=== PATIENT | female | born 1960 ===

== ENCOUNTER 2018-01-05 07:47 | Inpatient (IN) | payer BC ==
[2018-01-05 07:47] VITALS: BMI 25.8
[2018-01-05] MEDS ORDERED: Morphine 4 MG/ML VIAL ONE (08:34)
--- NOTE | 2018-01-05 08:39 | C.PDOC ---
History Of Present Illness 57-year-old female, presents to the emergency department with complaints of shoulder pain. Patient states she injured her right shoulder this morning, s/p trip and fall while walking. Pain worsens with movement. Patient denies numbness /weakness, nausea/vomiting, head/neck injuries. Time Seen by Provider: 01/05/18 08:02 Chief Complaint (Nursing): Upper Extremity Problem/Injury History Per: Patient History/Exam Limitations: no limitations Past Medical History Reviewed: Historical Data, Nursing Documentation, Vital Signs Vital Signs: Last Vital Signs Temp 98.1 F 01/05/18 07:58 Pulse 89 01/05/18 09:44 Resp 20 01/05/18 09:44 BP 150/89 01/05/18 09:44 Pulse Ox 99 01/05/18 09:44 - Medical History PMH: Anemia (G6PD), HTN Family History: States: No Known Family Hx - Social History Hx Tobacco Use: Yes Hx Alcohol Use: No Hx Substance Use: No - Immunization History Hx Tetanus Toxoid Vaccination: No Hx Influenza Vaccination: No Hx Pneumococcal Vaccination: No Review Of Systems Gastrointestinal: Negative for: Vomiting Musculoskeletal: Positive for: Shoulder Pain (Right) Neurological: Negative for: Weakness, Numbness Physical Exam - Physical Exam Appears: Non-toxic, No Acute Distress Skin: Normal Color, Warm, Dry, No Rash Head: Atraumatic, Normacephalic Eye(s): bilateral: Normal Inspection Oral Mucosa: Moist Neck: Normal ROM Chest: Symmetrical Cardiovascular: Rhythm Regular, No Murmur Respiratory: Normal Breath Sounds, No Accessory Muscle Use Extremity: Tenderness, Deformity, Swelling, Other (Right shoulder: severe pain, obvious deformity with moderate swelling. Echymosis to anterior aspect with diffuse tenderness. Unable to abduct.) Pulses: Left Brachial: Normal, Right Brachial: Normal Neurological/Psych: Oriented x3, Normal Speech ED Course And Treatment - Laboratory Results Result Diagrams: 01/05/18 08:40 01/05/18 08:40 Lab Interpretation: No Acute Changes ECG: Interpreted By Me, Viewed By Me ECG Rhythm: Sinus Rhythm ECG Interpretation: No Acute Changes Interpretation Of ECG: NS at [address]-T wave abnormality and no acute changes Rate From EC O2 Sat by Pulse Oximetry: 99 (RA) Pulse Ox Interpretation: Normal - Radiology CXR: Interpreted by Me, Viewed By Me CXR Interpretation: Yes: No Acute Disease - Other Rad XR R SHOULDER X-Ray: Interpreted by Me, Viewed By Me, Read By Radiologist Interpretation: Humeral head comminuted impacted displaced fracture Medical Decision Making Medical Decision Making: Impression: Right shoulder injury Plan: * Labs * Morphine * XRay right shoulder * UA Progress: Xray shows acute displaced comminuted impacted angulated fracture of the distal humerus with associated fracture of the greater tuberosity. [address] Norris, requesting CT shoulder. He states keep NPO and will come to ED ETA 10am, and prep for OR. Additional orders placed CXR, EKG Diagnostics reviewed Contact medicine sponge packer Dr Daniels to admit patient to medical service. Patient remained stable and pain improving. Disposition - Disposition Disposition: HOSPITALIZED Disposition Time: 09:40 Condition: STABLE - POA Present On Arrival: None - Clinical Impression Clinical Impression: Shoulder fracture, right - Scribe Statement The provider has reviewed the documentation as recorded by the Scribe (Edouard Norris) All medical record entries made by the Scribe were at my direction and personally dictated by me. I have reviewed the chart and agree that the record accurately reflects my personal performance of the history, physical exam, medical decision making, and the department course for this patient. I have also personally directed, reviewed, and agree with the discharge instructions and disposition. Decision To Admit - Pt Status Changed To: Hospital Disposition Of: Inpatient - Admit Certification Admit to Inpatient:: After my assessment, the patient will require hospitalization for at least two midnights. This is because of the severity of symptoms shown, intensity of services needed, and/or the medical risk in this patient being treated as an outpatient. - InPatient: Physician Admission Certification: I certify that this patient requires 2 or more midnights of care for the following reason:: Patient with acute fracture to right shoulder that requires surgical repair. Orthopedic requested pre-op labs and will take patient to OR. - . Bed Request Type: Regular Admitting Physician: Juan Carlos Daniels Patient Diagnosis: Shoulder fracture, right
--- NOTE | 2018-01-05 08:50 | RAD ---
PROCEDURE: Radiographs of the Right Shoulder HISTORY: fall and injury, swelling and pain COMPARISON: None available. FINDINGS: Comminuted displaced fracture of the proximal humerus. The humeral head appears dislocated anterior inferiorly. Coarse calcifications in the joint space consistent with calcific tendinitis. Distal clavicle, included right ribs, acromion, and right scapula appear intact. Degenerative changes the visualized thoracic spine. No focal consolidation, significant pleural effusion, or definite pneumothorax within the limited visualized lung field. IMPRESSION: Comminuted displaced fracture of the proximal humerus. Anterior inferior dislocation of the humeral head. Evidence of calcific tendinitis.
[2018-01-05 08:54] LABS: INR 1.1; PROTHROMBIN TIME 12.3 SECONDS (9.7-12.2)
[2018-01-05 08:56] LABS: BASO % 0.2 % (0.0-2.0); EOS % 0.1 % (0.0-4.0); HEMOGLOBIN 11.5 g/dL (11.0-16.0); LYMPH # 1.4 K/uL (1.0-4.3); LYMPH % 16.7 % (20.0-40.0); MEAN CORPUSCULAR HEMOGLOBIN 36.7 pg (27.0-31.0); MEAN PLATELET VOLUME 7.3 fL (7.2-11.7); MONO # 0.5 K/uL (0.0-0.8); MONO % 6.4 % (0.0-10.0); NEUT # 6.5 K/uL (1.8-7.0); NEUT % 76.6 % (50.0-75.0); RBC 3.13 Mil/uL (3.80-5.20); RED CELL DISTRIBUTION WIDTH 12.4 % (11.5-14.5); WHITE BLOOD COUNT 8.5 K/uL (4.8-10.8)
[2018-01-05 09:03] LABS: ALB/GLOB RATIO 1.4 (1.0-2.1); ALBUMIN 4.5 g/dL (3.5-5.0); ALT/SGPT 34 U/L (9-52); AST/SGOT 59 U/L (14-36); BLOOD UREA NITROGEN 12 mg/dL (7-17); CALCIUM 8.9 mg/dl (8.6-10.4); GFR AFRICAN-AMERICAN > 60; GFR NON-AFRICAN AMERICAN > 60
--- NOTE | 2018-01-05 09:33 | RAD ---
HISTORY: pre-op COMPARISON: Chest radiograph dated 05/11/2011. FINDINGS: LUNGS: No active pulmonary disease. PLEURA: No significant pleural effusion identified, no pneumothorax apparent. CARDIOVASCULAR: Normal. OSSEOUS STRUCTURES: Comminuted fracture of the proximal right humerus. VISUALIZED UPPER ABDOMEN: Normal. OTHER FINDINGS: None. IMPRESSION: No active disease.
--- NOTE | 2018-01-05 09:35 | CT ---
PROCEDURE: CT right shoulder HISTORY: abnormal xray and fracture COMPARISON: Not available TECHNIQUE: 2.5 mm contiguous axial sections were acquired through the right shoulder. Sagittal and coronal images were reformatted from the axial scan. FINDINGS: There is an impacted comminuted displaced fracture of the right humeral head and greater tuberosity. There is mild posterior displacement of the main each humeral head fragment head with posterior angulation and impaction. This is best appreciated on sagittal series. There are globular calcifications adjacent to greater tuberosity consistent with calcific tendinitis. There is no glenoid fracture appreciated. There are small subchondral cysts of the glenoid consistent with degenerative arthritis. There is an old healed fracture of the distal clavicle. There is a large inferior spur arising from the distal clavicle resulting in a pseudoarticulation with the coracoid process. There is no acute scapular fracture. The acromioclavicular articulation is preserved. There is no suman hematoma. IMPRESSION: Acute displaced comminuted impacted angulated fracture of the distal humerus with associated fracture of the greater tuberosity. Old healed fracture of the distal clavicle. Calcific tendinitis.
[2018-01-05] MEDS ORDERED: Oxycodone/Acetaminophen 5/325 mg Tab PO PRN (10:18)
[2018-01-05] MEDS ORDERED: oxyCODONE 5 mg Immediate Release Tab PO PRN ×2 (10:31→10:45)
--- NOTE | 2018-01-05 10:33 | CP.PCM.PN ---
Subjective - Date & Time of Evaluation Date of Evaluation: 01/05/18 Time of Evaluation: 10:32 - Subjective Subjective: CC: fall with pain in R shoulder This patient is a 57yo F w/ a PMhx of symptomatic anemia 2/2 to fibroids, G6PD deficiency, endometriosis s/p partial hysterectomy, and HTN not currently on meds because she hasn't been to the doctor in a while who presents to the ED because she was walking, lost her footing, tripped, and fell on her right shoulder. The patient is unable to move her right arm in any plane 2/2 to pain; she is not complaining of numbness/tingling/pain in her hand/forearm, just in her shoulder and the pain does not radiate anywhere. She is currently denying fevers/chills, JEAN, CP, SOB, abdominal pain, N/V/D, dysuria/freq/urg or lower extremity pain/swelling. PMhx: Fibroids, Endometriosis, HTN, G6PD deficiency Surg: partial hysterectomy with both ovaries still, no adverse event to anesthesia FamHx: HTN, DM, breast cancer in 60's in sisters Allergies: G6PD; avoid hepatotoxic medications, no other allergies Social: walks without assistance, independent in all IADL and ADL, smokes 1ppd/ 30 years, social EtOH, denies all other illicit drugs Meds: None, but should be taking lisinopril 5mg Objective - Vital Signs/Intake and Output Vital Signs (last 24 hours): Temp Pulse Resp BP Pulse Ox 98.1 F 89 20 150/89 99 01/05/18 07:58 01/05/18 09:44 01/05/18 09:44 01/05/18 09:44 01/05/18 10:31 - Medications Medications: Current Medications Famotidine (Pepcid) 20 mg PO BID ANITA Ketorolac Tromethamine (Toradol) 30 mg IV Q6 PRN PRN Reason: Pain, moderate (4-7) Lisinopril (Zestril) 5 mg PO DAILY ANITA Ondansetron HCl (Zofran Inj) 4 mg IVP Q6 PRN PRN Reason: Nausea/Vomiting - Labs Labs: 01/05/18 08:40 01/05/18 08:40 PT 12.3 SECONDS (9.7-12.2) H 01/05/18 08:40 INR 1.1 01/05/18 08:40 APTT 25 SECONDS (21-34) 01/05/18 08:40 - Constitutional Appears: Non-toxic - Head Exam Head Exam: ATRAUMATIC, NORMAL INSPECTION - Eye Exam Eye Exam: EOMI - ENT Exam ENT Exam: Mucous Membranes Moist - Neck Exam Neck Exam: Normal Inspection. absent: Full ROM (pain with neck flexion and extension in the r shoulder), Lymphadenopathy, Meningismus - Respiratory Exam Respiratory Exam: Clear to Ausculation Bilateral, NORMAL BREATHING PATTERN. absent: Rales, Rhonchi, Wheezes - Cardiovascular Exam Cardiovascular Exam: REGULAR RHYTHM, +S1, +S2. absent: Tachycardia - GI/Abdominal Exam GI & Abdominal Exam: Soft, Normal Bowel Sounds. absent: Tenderness - Extremities Exam Extremities Exam: absent: Calf Tenderness, Full ROM (there is marked ROM limitation in right upper extrem, neurovascularly intact, intact senstation below shoulder to fingers, able to move forearm without problem or pain, and all fingers) - Back Exam Back Exam: NORMAL INSPECTION. absent: CVA tenderness (L), CVA tenderness (R) - Neurological Exam Neurological Exam: Alert, Awake - Skin Skin Exam: Warm (bruise on right leg/hip, able ot move hips in all ROM) Assessment and Plan - Assessment and Plan (Free Text) Assessment: 57yo F admitted for distal humerus fracture with concomittant fracture of greater tuberosity Distal Humerus fracture w/ fx of greater tuberosity -Dr. Norris; orthopedics; thank you for your help -NPO in ED and will be NPO aftermidnight as well; will hold anticoagulation currently for surgery -please refer to CAT scan for full report -patient is neurovascularly intact -pain control; morphine IV, Oxycodone, Tordal; avoid tylenol 2/2 to G6PD deficiency Pmhx of HTN -lisinopril 5mg daily Hx of G6PD Deficiency -avoid hepatotoxic medications Proph Pepcid SCD f/u HbA1C, TSH, Lipid Panel Patient has G6PD deficiency; please avoid all hepatotoxic medications Case discussed with Dr. Daniels
[2018-01-05] MEDS: Morphine 4 MG/ML VIAL IVP PRN ×2 (12:40→21:19)
[2018-01-05] MEDS ORDERED: Midazolam 2 MG/2 ML VIAL ONE (14:14)
[2018-01-05] MEDS ORDERED: Propofol 10 mg/ml Inj (20 ML) ONE (14:15)
[2018-01-05] MEDS ORDERED: ceFAZolin 1 gm in NS 1 GM/100 ML BAG IVPB ONE (14:32)
[2018-01-05] MEDS ORDERED: Lidocaine/Epinephrine 1% 1:100000 10 ML IJ ONE (15:14)
[2018-01-05] MEDS ORDERED: Bupivacaine HCl 0.25% PF (10 ml) Inj ONE (17:13)
--- NOTE | 2018-01-05 17:33 | PCM.SURG1 ---
Surgeon's Initial Post Op Note - Surgeon's Notes Surgeon: Dr. Norris Hockey Instructor: Cliff Carreon Type of Anesthesia: General Endo Pre-Operative Diagnosis: Right shoulder fracture displaced, closed Operative Findings: Fixation plates and screw SYNTHES Post-Operative Diagnosis: same Operation Performed: Right shoulder open reduction and internal fixation Specimen/Specimens Removed: None Estimated Blood Loss: EBL {In ML}: 100 Blood Products Given: N/A Drains Used: No Drains Post-Op Condition: Good Date of Surgery/Procedure: 01/05/18 Time of Surgery/Procedure: 17:33
[2018-01-05] MEDS: HYDROmorphone 0.5 mg/0.5 ml ISec IVP PRN ×2 (17:47→19:17)
[2018-01-06] MEDS: Morphine 4 MG/ML VIAL IVP PRN (01:36)
--- NOTE | 2018-01-06 03:11 | CON ---
DATE: CHIEF COMPLAINT: Right shoulder proximal humerus fracture. HISTORY OF PRESENT ILLNESS: The patient is a 57-year-old female, right-hand dominant, who presented to the ER after slip and fall. The x-ray and CT scan showing a displaced 4-part proximal humerus fracture. The patient was seen by me in the emergency room. I had a detailed discussion with patient. I explained the complex nature. She denied any loss of consciousness. She denies pain in any of the extremities or joints. Denies any significant previous right shoulder pain. PHYSICAL EXAMINATION: Examination of the patient's right shoulder, there was significant ecchymosis, soft tissue, and swelling, limited range of motion of the shoulder. She was neurovascularly intact distally. Under imaging, x-ray and CT scan of the patient's right shoulder, showing a 4-part comminuted proximal humerus fracture. ASSESSMENT: A 57-year-old female, right shoulder 4-part comminuted proximal humerus fracture treatment. I had a detailed discussion with the patient, regarding the complex nature of the injury. I presented the patient with different treatment options, for nonoperative and operative management. After careful consideration, the patient would like to proceed with operative management. I had recommended open reduction internal fixation. The risk include, but are not limited to bleeding, infection, nerve vessel damage, continued pain, malunion, nonunion, blood clots, need for further surgery, and even . The patient fully understands the risks and benefits, would like to proceed with surgery as soon as possible. Chris Norris MD
--- NOTE | 2018-01-06 03:45 | OP ---
PROCEDURE DATE: 01/05/2018 PREOPERATIVE DIAGNOSIS: Right shoulder proximal humerus fracture. POSTOPERATIVE DIAGNOSIS: Right shoulder anterior dislocation. PROCEDURES: 1. Right shoulder open reduction internal fixation of proximal humerus fracture. 2. Right shoulder open/closed reduction. 3. Biceps tenodesis, right shoulder open. 4. Debridement of soft tissue and bone of right shoulder. 5. Fluoroscopic use more than 1 hour. 6. Bone grafting of the front humerus defect. ESTIMATED BLOOD LOSS: 150 mL. ANESTHESIA TYPE: General. SURGEON: Chris Norris MD FILLING TECHNICIAN: Luiz Coronado MD IMPLANTS: 1. Synthes 3-hole proximal humerus plate. 2. Cancellous chip bone graft. 3. Norian cement. ORIF of the right shoulder. The patient was seen by me in the emergency room, showed a displaced fracture across the humerus. I presented the patient with different treatment options of open reduction internal fixation versus nonoperative management. I reviewed the risks and benefits of both treatment options with the patient and after careful consideration, she opted to proceed with the operative management. I reviewed the risks and benefits of the surgery with the patient in detail. The risks included but not limited to bleeding, infection, neurovascular damage, continued pain, stiffness, need for further surgery, blood clot, even . The patient fully understood the risks and benefits and opted to proceed. DESCRIPTION OF PROCEDURE: On the day of the surgery, the patient was brought to preop holding area. A laterality of hip was completed confirming the patient's right shoulder to be the correct operative site. Informed consent was signed from the patient. Once again, we reviewed the risks and benefits. The patient was brought into operating room table. She was given general anesthesia and appropriate prophylactic antibiotics, after which he was placed in a beach chair position with head of bed, to 60 degrees of flexion. The right shoulder was draped and prepped in standard sterile manner. First a time-out was completed confirming the patient's right shoulder. First fluoroscopic images were taken showing anterior dislocation of the shoulder that was irreducible. Next, we proceeded with a standard 8 cm deltopectoral incision. Skin dissection was taken down. The cephalic vein was identified and mobilized laterally. The interval between the deltoid and pectoralis major was identified. The fracture was identified. There was extensive hematoma, which was evacuated. There was a brief soft tissue damage that was extensively debrided using irrigation and lavage. All pieces of bone were removed and the biceps was identified and a biceps tenotomy was performed and it was tied to the top superior portion of pectoralis major tendon, using number two 5-0 wire. After extensive debridement, the fracture fragments were mobilized and the sutures were placed in the rotator cuff tendons to gain mobility of the proximal fragments. Using the Patterson elevator, the arm was brought out to length and using multiple K-wires, the fracture was provisionally fixated and it was confirmed on AP and lateral radiographs for fixation. A Synthes proximal humerus 3-hole plate was used, first the cortical screw was placed on the shaft, to reduce the shaft and plate. Next, multiple locking screws were placed on the proximal fragment and finally, the two additional locking screws were placed in the shaft. The defect of the proximal humerus was filled using cancellous bone chips, allograft, and also Norian cement to provide structural stability of the rotator cuff, was also repaired to the plate using #5 FiberWire sutures. The final radiograph was taken showing a secured construct. The wound was copiously irrigated and all the debris was removed. The skin was closed in standard manner using Vicryl and nylon suture. Sterile dressing was applied. The patient's arm was placed in an abduction sling. She was extubated and taken to the recovery room. There were no complications with the surgery. Dr. Luiz Coronado, the board certified orthopedic surgeon was present for the entirety of the case as his participation was crucial in fracture reduction, retraction of critical neurovascular structure, appropriate reduction of the fracture and fixation of the fracture in an implant position. Chris Norris MD
[2018-01-06 06:15] LABS: BASO % 0.1 % (0.0-2.0); HEMOGLOBIN 9.2 g/dL (11.0-16.0); LYMPH # 0.6 K/uL (1.0-4.3); LYMPH % 7.8 % (20.0-40.0); MEAN CELL VOLUME 101.7 fL (81.0-99.0); MEAN CORPUSCULAR HEMOGLOBIN 37.6 pg (27.0-31.0); MEAN PLATELET VOLUME 8.8 fL (7.2-11.7); MONO # 0.6 K/uL (0.0-0.8); NEUT # 6.1 K/uL (1.8-7.0); NEUT % 84.1 % (50.0-75.0); PLATELET COUNT 66 K/uL (130-400); RBC 2.43 Mil/uL (3.80-5.20); RED CELL DISTRIBUTION WIDTH 12.5 % (11.5-14.5); WHITE BLOOD COUNT 7.3 K/uL (4.8-10.8)
[2018-01-06 06:37] LABS: ALB/GLOB RATIO 1.2 (1.0-2.1); ALBUMIN 3.3 g/dL (3.5-5.0); ALT/SGPT 25 U/L (9-52); AST/SGOT 34 U/L (14-36); BLOOD UREA NITROGEN 8 mg/dL (7-17); CALCIUM 7.5 mg/dl (8.6-10.4); GFR AFRICAN-AMERICAN > 60; GFR NON-AFRICAN AMERICAN > 60; HDL CHOLESTEROL 59 mg/dL (30-70)
[2018-01-06 06:40] LABS: LDL CHOLESTEROL 87 mg/dL (0-129)
[2018-01-06] MEDS ORDERED: Potassium Chloride 20 mEq ER Tab PO ONE (07:03)
--- NOTE | 2018-01-06 08:10 | RAD ---
PROCEDURE: Intraoperative Fluoroscopy. HISTORY: RT SHOULDER FX FINDINGS: Fluoroscopic assistance was provided for right humeral fracture repair. Please refer to the operative report from [facility].
[2018-01-06 08:33] LABS: BANDS 17 % (0-2); LYMPHOCYTE 7 % (20-40); MONOCYTE 2 % (0-10); NEUTROPHIL 74 % (50-75); PLATELET ESTIMATE DECREASED (NORMAL); TOTAL CELLS COUNTED 100
[2018-01-06 08:34] LABS: ANISOCYTOSIS SLIGHT; HYPOCHROMIC SLIGHT; POIKILOCYTOSIS SLIGHT
[2018-01-06] MEDS ORDERED: Sodium Chloride 0.9% 1,000 ML IV ONE ×2 (08:55→09:55)
--- NOTE | 2018-01-06 09:14 | RAD ---
HISTORY: sepsis work up COMPARISON: 01/05/2018 FINDINGS: LUNGS: No active pulmonary disease. PLEURA: No significant pleural effusion identified, no pneumothorax apparent. CARDIOVASCULAR: Normal. OSSEOUS STRUCTURES: Interval fixation of a proximal right humeral head neck comminuted fracture with plate and multiple screws. A 12 mm well corticated ossification fracture fragment and oral large calcific bursitis focus projected lateral to the humeral head as before and is similar in appearance Thoracic spondylosis VISUALIZED UPPER ABDOMEN: Normal. OTHER FINDINGS: None. IMPRESSION: No pulmonary infiltrate. Interval reduction internal fixation of proximal right humeral comminuted fracture
[2018-01-06 09:41] LABS: VENOUS BLOOD GAS BASE EXCESS 4.9 mmol/L (0.0-2.0); VENOUS BLOOD GAS PCO2 36 mmHg (40-60); VENOUS BLOOD GAS PO2 36 mm/Hg (30-55)
[2018-01-06] MEDS: Docusate-Senna 50 mg-8.6 mg Tab PO SCH ×2 (09:53→17:17)
[2018-01-06 10:09] LABS: SQUAMOUS EPITHIAL 1 /hpf (0-5); URINE BACTERIA RARE (<OCC); URINE BILIRUBIN NEGATIVE (NEGATIVE); URINE BLOOD NEGATIVE (NEGATIVE); URINE CLARITY Clear (Clear); URINE COLOR Yellow (YELLOW); URINE GLUCOSE (UA) NORMAL (Normal); URINE LEUKOCYTE ESTERASE TRACE Leu/uL (Negative); URINE PROTEIN NEGATIVE (NEGATIVE); URINE UROBILINOGEN NORMAL mg/dL (0.2-1.0)
--- NOTE | 2018-01-06 10:21 | PCM.RRT ---
MAINTENANCE TECHNICIAN 2ND SHIFT Nurses Assessment - Situation Date: 01/06/18 Time MAINTENANCE TECHNICIAN 2ND SHIFT was called: 10:19 MAINTENANCE TECHNICIAN 2ND SHIFT Responder Arrival Time:: 09:30 MAINTENANCE TECHNICIAN 2ND SHIFT Location:: 6T Med/Surg MAINTENANCE TECHNICIAN 2ND SHIFT Called By: Physician - IV IV Inserted during MAINTENANCE TECHNICIAN 2ND SHIFT?: No New IV Insertion Tolerance: Excellent - Respiratory MAINTENANCE TECHNICIAN 2ND SHIFT Delivery Method: Room Air Received Nebulizer Treatments: No - Medication Medications Administered During MAINTENANCE TECHNICIAN 2ND SHIFT: ceftriaxone, azithromycin, 2L NS - Diagnostic Test Ordered EKG: No Chest X-Ray: Yes CT Scan: No - Stat Labs Ordered MAINTENANCE TECHNICIAN 2ND SHIFT Stat Labs Ordered: LACTIC ACID, BLOOD C&S X2 CPR started during MAINTENANCE TECHNICIAN 2ND SHIFT?: No - [place] Coma Scale Coma Scale Eye Opening: Spontaneous Coma Scale Motor: Obeys Commands Movement Coma Scale Verbal: Oriented Coma Scale Total: 15 - Sepsis Screen Part 1 Sepsis Screen Part 1: Temperature over 100.6F - Sepsis Screen Part 2 Sepsis Screen Part 2: Bands over 10% - Time MAINTENANCE TECHNICIAN 2ND SHIFT Ended Time MAINTENANCE TECHNICIAN 2ND SHIFT Ended: 10:19 - Recommendations 5) MAINTENANCE TECHNICIAN 2ND SHIFT Level of Care Recommendations: Remain in current setting Notifications: Attending Physician - Neurological Status (Select all that apply): Alert, Responsive, Oriented, Verbal - Constitutional Appears: Well, Non-toxic - Head Head Exam: ATRAUMATIC - Eyes Eye Exam: EOMI - Respiratory Exam Respiratory Exam: Clear to Ausculation Bilateral, NORMAL BREATHING PATTERN - Cardiovascular Exam Cardiovascular Exam: REGULAR RHYTHM, +S1, +S2 - GI/Abdominal Exam GI & Abdominal Exam: Soft, Normal Bowel Sounds - Neurological Exam Neurological Exam: Alert, Awake, Normal Gait, Oriented x3 - Extremities Exam Extremities Exam: Full ROM Plan - Assessment of Findings&Treatment Plan BLood cultures, VBG Lactate, UA Chest X-Ray Ordered Given 1G ceftriaxone, Azithromycin 2L NS given Lactate came back 2.2 with bands code sepsis will be called sepsis protocol followed lactate ordered for 1:30PM for f/u; will f/u
[2018-01-06 10:31] LABS: INFLUENZA A B NEGATIVE FOR FLU A/B (NEGATIVE)
[2018-01-06] MEDS ORDERED: Enoxaparin 40 mg Syringe SC SCH (10:45)
--- NOTE | 2018-01-06 10:54 | CP.PCM.PN ---
Subjective - Date & Time of Evaluation Date of Evaluation: 01/06/18 Time of Evaluation: 10:52 - Subjective Subjective: PGY2 Medicine Note for Dr. Daniels, all management as per Dr. Daniels This patient was seen and examined at bedside this AM; patient had a fever overnight but did not feel subjectively bad in any way denies fevers/chills, JEAN < CP, SOB, abdominal pain, N/V/D, dysuria/freq/urg or lower extremity pain/ swelling. States pain is well controlled at surgical site Code sepsis was called for bands of 14, lactate 2.2, fever; unknown origin; as patient is post op day 1 most likely atelectesis at this point but will follow. Objective - Vital Signs/Intake and Output Vital Signs (last 24 hours): Temp Pulse Resp BP Pulse Ox 99.1 F 88 20 110/79 98 01/06/18 09:39 01/06/18 09:39 01/06/18 09:39 01/06/18 09:39 01/06/18 09:39 Intake and Output: 01/06/18 01/06/18 06:59 18:59 Intake Total 600 Balance 600 - Medications Medications: Current Medications Enoxaparin Sodium (Lovenox) 40 mg SC DAILY [facility] Famotidine (Pepcid) 20 mg PO BID [facility] Last Admin: 01/06/18 09:53 Dose: 20 mg Sodium Chloride (Sodium Chloride 0.9%) 1,000 mls @ 1,000 mls/hr IV .Q1H ONE Stop: 01/06/18 10:54 Last Admin: 01/06/18 09:56 Dose: 1,000 mls/hr Azithromycin 500 mg/ Sodium (Chloride) 250 mls @ 250 mls/hr IVPB DAILY@1130 [facility] PRN Reason: Protocol Ceftriaxone Sodium 1 gm/ (Sodium Chloride) 100 mls @ 100 mls/hr IVPB DAILY [facility] PRN Reason: Protocol Ketorolac Tromethamine (Toradol) 30 mg IV Q6 PRN PRN Reason: Pain, moderate (4-7) Last Admin: 01/06/18 06:00 Dose: 30 mg Lisinopril (Zestril) 5 mg PO DAILY [facility] Last Admin: 01/06/18 09:53 Dose: 5 mg Morphine Sulfate (Morphine) 2 mg IVP Q4 PRN PRN Reason: Pain, severe (8-10) Last Admin: 01/06/18 09:52 Dose: 2 mg Ondansetron HCl (Zofran Inj) 4 mg IVP Q6 PRN PRN Reason: Nausea/Vomiting Oxycodone HCl (Oxycodone Immediate Release Tab) 5 mg PO Q4 PRN PRN Reason: Arm pain Senna/Docusate Sodium (Senokot S 50 Mg-8.6 Mg) 1 tab PO BID [facility] Last Admin: 01/06/18 09:53 Dose: 1 tab - Labs Labs: 01/06/18 06:06 01/06/18 06:06 PT 12.3 SECONDS (9.7-12.2) H 01/05/18 08:40 INR 1.1 01/05/18 08:40 APTT 25 SECONDS (21-34) 01/05/18 08:40 - Constitutional Appears: Well, Non-toxic - Head Exam Head Exam: ATRAUMATIC - Eye Exam Eye Exam: EOMI - ENT Exam ENT Exam: Mucous Membranes Moist - Neck Exam Neck Exam: Full ROM. absent: Lymphadenopathy - Respiratory Exam Respiratory Exam: Clear to Ausculation Bilateral, NORMAL BREATHING PATTERN. absent: Rales, Rhonchi, Wheezes - Cardiovascular Exam Cardiovascular Exam: REGULAR RHYTHM, +S1, +S2 - GI/Abdominal Exam GI & Abdominal Exam: Soft, Normal Bowel Sounds. absent: Tenderness - Extremities Exam Extremities Exam: Full ROM. absent: Calf Tenderness Additional comments: patient is s/p orif is toelrating well still neurovascuarly intact - Back Exam Back Exam: absent: CVA tenderness (L), CVA tenderness (R) - Neurological Exam Neurological Exam: Alert, Awake, Normal Gait, Oriented x3 - Psychiatric Exam Psychiatric exam: Normal Affect - Skin Skin Exam: Warm Assessment and Plan - Assessment and Plan (Free Text) Assessment: 57yo F admitted for distal humerus fracture with concomittant fracture of greater tuberosity Distal Humerus fracture w/ fx of greater tuberosity -Dr. Norris; orthopedics; thank you for your help; patient is to f/u with Dr. Norris as outpatient patient is s/p ORIF; patient is receiving lovenox here for anticoagulation; further anticoagulation as per Ortho as outpatient -please refer to CAT scan for full report -patient is neurovascularly intact -pain control; morphine IV, Oxycodone, Tordal; avoid tylenol/aspirin 2/2 to G6PD deficiency Fever Post Op Fever day 1; most likely atelectesis UA negative, bands 10, Lactate 2.2, f/u blood cultures f/u repeat lactate f/u procal Ceftriaxone 1g and Azithromycin daily for now will follow Pmhx of HTN -lisinopril 5mg daily Hx of G6PD Deficiency -avoid hepatotoxic medications Proph Pepcid SCD f/u HbA1C, TSH, Lipid Panel Patient has G6PD deficiency; please avoid all hepatotoxic medications Case discussed with Dr. Daniels
[2018-01-06] MEDS ORDERED: Azithromycin 500 MG in Sodium Chloride 0.9% 250 ML IVPB SCH (11:30)
--- NOTE | 2018-01-06 15:43 | PCM.SEPTIC ---
Sepsis Progress Note - Reassessment Type Date of Evaluation: 01/06/18 Time of Evaluation: 15:42 Reassessment Type: Non-invasive reassessment - Non Invasive Reassessment Were the most recent vital sign reviewed: Yes Vital Sign (Latest): Temp Pulse Resp BP Pulse Ox 99.7 F H 88 20 110/79 98 01/06/18 13:53 01/06/18 09:39 01/06/18 09:39 01/06/18 09:39 01/06/18 09:39 Cardiovascular: Yes: Regular Rate, Rhythm Respiratory: Yes: Normal Breath Sounds Capillary Refill: Normal (Less than 2 sec) Skin: Warm - Invasive Reassessment (complete 2 of 4) Was a Central Venous Pressure Measurement obtained within 6 Hours after the presentation of septic shock: No Was a central venous oxygen measurement obtained within 6 hours after the presentation of septic shock: No Was a bedside cardiovascular ultrasound performed within 6 hours after the presentation of septic shock: No Was a passive leg raise performed or was a fluid challenge performed within 6 hrs of the initial fluid bolus: Yes Passive Leg Raise Result: Not Applicable Fluid Challenge performed: Yes
[2018-01-06 16:20] LABS: VENOUS BLOOD GAS BASE EXCESS 2.2 mmol/L (0.0-2.0); VENOUS BLOOD GAS PCO2 33 mmHg (40-60); VENOUS BLOOD GAS PO2 55 mm/Hg (30-55); VENOUS BLOOD PH 7.49 (7.32-7.43)
[2018-01-07 07:29] LABS: BASO % 0.1 % (0.0-2.0); HEMOGLOBIN 7.5 g/dL (11.0-16.0); LYMPH # 0.8 K/uL (1.0-4.3); LYMPH % 11.6 % (20.0-40.0); MEAN CELL VOLUME 102.3 fL (81.0-99.0); MEAN CORPUSCULAR HEMOGLOBIN 37.3 pg (27.0-31.0); MEAN CORPUSCULAR HGB CONC 36.5 g/dL (33.0-37.0); MEAN PLATELET VOLUME 9.2 fL (7.2-11.7); MONO # 0.6 K/uL (0.0-0.8); MONO % 7.7 % (0.0-10.0); NEUT # 5.9 K/uL (1.8-7.0); NEUT % 80.6 % (50.0-75.0); RBC 2.02 Mil/uL (3.80-5.20); RED CELL DISTRIBUTION WIDTH 12.2 % (11.5-14.5); WHITE BLOOD COUNT 7.3 K/uL (4.8-10.8)
[2018-01-07 07:36] LABS: ALBUMIN 3.1 g/dL (3.5-5.0); ALT/SGPT 46 U/L (9-52); AST/SGOT 85 U/L (14-36); BLOOD UREA NITROGEN 7 mg/dL (7-17); CALCIUM 7.4 mg/dl (8.6-10.4); GFR AFRICAN-AMERICAN > 60; GFR NON-AFRICAN AMERICAN > 60
[2018-01-07] MEDS ORDERED: Potassium Chloride 20 mEq ER Tab PO ONE (09:19)
--- NOTE | 2018-01-07 09:50 | CP.PCM.PN ---
Subjective - Date & Time of Evaluation Date of Evaluation: 01/07/18 Time of Evaluation: 09:51 - Subjective Subjective: PGY2 Medicine Note for Dr. Daniels; all management as per Dr. Daniels This patient was seen and examined at bedside this AM; denies any acute complaints or overnight complaints; despite fever paitent states she feels fine and does not complain of subjective fever,chills, JEAN, CP, SOB, abdominal pain, N /V/D, dysuria/freq/urg or lower extremity pain/swelling. No bleeding from any site as per patient. Objective - Vital Signs/Intake and Output Vital Signs (last 24 hours): Temp Pulse Resp BP Pulse Ox 98.3 F 103 H 20 150/85 97 01/07/18 07:10 01/07/18 07:10 01/07/18 07:10 01/07/18 07:10 01/07/18 07:10 - Medications Medications: Current Medications Azithromycin (Zithromax) 500 mg PO DAILY [facility] PRN Reason: Protocol Famotidine (Pepcid) 20 mg PO BID [facility] Last Admin: 01/06/18 17:17 Dose: 20 mg Folic Acid (Folic Acid) 1 mg PO DAILY [facility] Ceftriaxone Sodium 1 gm/ (Sodium Chloride) 100 mls @ 100 mls/hr IVPB DAILY [facility] PRN Reason: Protocol Last Admin: 01/06/18 11:20 Dose: 100 mls/hr Morphine Sulfate (Morphine) 2 mg IVP Q4 PRN PRN Reason: Pain, severe (8-10) Last Admin: 01/06/18 09:52 Dose: 2 mg Ondansetron HCl (Zofran Inj) 4 mg IVP Q6 PRN PRN Reason: Nausea/Vomiting Oxycodone HCl (Oxycodone Immediate Release Tab) 5 mg PO Q4 PRN PRN Reason: Arm pain Senna/Docusate Sodium (Senokot S 50 Mg-8.6 Mg) 1 tab PO BID [facility] Last Admin: 01/06/18 17:17 Dose: 1 tab Thiamine HCl (Vitamin B1 Tab) 100 mg PO DAILY [facility] - Labs Labs: 01/07/18 07:17 01/07/18 07:17 PT 12.3 SECONDS (9.7-12.2) H 01/05/18 08:40 INR 1.1 01/05/18 08:40 APTT 25 SECONDS (21-34) 01/05/18 08:40 - Constitutional Appears: Well, Non-toxic - Head Exam Head Exam: ATRAUMATIC - Eye Exam Eye Exam: EOMI, PERRL. absent: Scleral icterus - ENT Exam ENT Exam: Mucous Membranes Moist - Neck Exam Neck Exam: Full ROM. absent: Lymphadenopathy - Respiratory Exam Respiratory Exam: Clear to Ausculation Bilateral, NORMAL BREATHING PATTERN. absent: Rales, Rhonchi, Wheezes - Cardiovascular Exam Cardiovascular Exam: REGULAR RHYTHM, +S1, +S2 - GI/Abdominal Exam GI & Abdominal Exam: Soft, Normal Bowel Sounds - Extremities Exam Extremities Exam: Full ROM. absent: Calf Tenderness - Back Exam Back Exam: NORMAL INSPECTION. absent: CVA tenderness (L), CVA tenderness (R) - Neurological Exam Neurological Exam: Alert, Awake, Normal Gait, Oriented x3 - Psychiatric Exam Psychiatric exam: Normal Affect, Normal Mood (patient is somewhat upset she will be staying in the hospital) - Skin Skin Exam: Warm Assessment and Plan - Assessment and Plan (Free Text) Assessment: 57yo F admitted for distal humerus fracture with concomittant fracture of greater tuberosity Distal Humerus fracture w/ fx of greater tuberosity -Dr. Norris; orthopedics; thank you for your help; patient is to f/u with Dr. Norris as outpatient patient is s/p ORIF; patient is receiving lovenox here for anticoagulation; further anticoagulation as per Ortho as outpatient -please refer to CAT scan for full report -patient is neurovascularly intact -pain control; morphine IV, Oxycodone; avoid tylenol/aspirin/NSAIDS 2/2 to G6PD deficiency -as per ortho guidelines patient does not need anticoagulation because her surgery was on upper extremity and she has no limitations in mobility Fever -Post Op Fever day 2; -Initial: UA negative, bands 10, Lactate 2.2, repeat lactate was WNL and procal was slightly elevated -Ceftriaxone 1g and Azithromycin daily for now -will follow -blood cultures to follow Pmhx of HTN -lisinopril 5mg HOLD 2/2 to G6PD deficiency Hx of G6PD Deficiency -avoid hepatotoxic medications; list is long for medications that are warned -will stop ibuprofen/any NSAID, will stop lisinopril, stopped lovenox 2/2 to thrombocytopenia Possible Hemolytic Anemia 2/2 to drug reaction -consult hematology; Dr. Anderson; thank you for your help; appreciate recs -stopped all possible medications that are on up-to-date for possible reactions with G6PD def -f/u haptoglobin, fibrin degredation products and peripheral smear, type and cross; patient has drop in hemoglobin from 12 to 7 and all blood lines -patient subjectively feels fine, no complaints Thrombocytopenia most likely 2/2 to hemolytic anemia -52 currently; no active bleeding hold lovenox -f/u heme onc recs Proph Pepcid SCD f/u HbA1C, TSH, Lipid Panel Patient has G6PD deficiency; please avoid all medications not indicated with G6PD Case discussed with Dr. Daniels
[2018-01-07] MEDS: Docusate-Senna 50 mg-8.6 mg Tab PO SCH ×2 (10:57→17:52)
--- NOTE | 2018-01-07 11:00 | CARD ---
APPROVED REPORT EKG Measurement Heart [id number] <Conclusion> Normal sinus rhythm Nonspecific ST and T wave abnormality Abnormal ECG
--- NOTE | 2018-01-07 11:58 | CP.PCM.CON ---
History of Present Illness - History of Present Illness History of Present Illness: 57 year old female with a history of HTN, G6PD, admitted for right shoulder fracture s/p ORIF, with progressive anemia. The patient reports to being diagnosed with G6PD as a teenager. She has never required a transfusion. She currently feels well overall. She denies fatigue, shortness of breath, and chest pain. She denies abnormal bleeding and bruising. Past medical history: HTN, G6PD Past surgical history: Partial hysterectomy, right shoulder ORIF Family history: Brother and nephew have G6PD Social history: 1/2ppd x 35 years, former ETOH abuse, denies illicit drug use. Allergies: Sulfa Review of systems: All remaining review of systems including HEENT, cardiovascular, respiratory, gastrointestinal, genitourinary, musculoskeletal, dermatologic, neurologic, and psychiatric are negative unless mentioned in the HPI. Past Patient History - Infectious Disease Hx of Infectious Diseases: None - Past Medical History & Family History Past Medical History?: Yes - Past Social History Smoking Status: Current Some Days Smoker - CARDIAC Hx Hypertension: Yes - HEMATOLOGICAL/ONCOLOGICAL Hx Anemia: Yes (G6PD) - MUSCULOSKELETAL/RHEUMATOLOGICAL Hx Falls: Yes - PSYCHIATRIC Hx Substance Use: No - SURGICAL HISTORY Hx Surgeries: Yes Hx Hysterectomy: Yes (PARTIAL) - ANESTHESIA Hx Anesthesia: Yes Hx Anesthesia Reactions: No Hx Malignant Hyperthermia: No Meds Allergies/Adverse Reactions: Allergies Allergy/AdvReac Type Severity Reaction Status Date / Time Sulfa (Sulfonamide Allergy FATIGUE Verified 01/05/18 12:32 Antibiotics) - Medications Medications: Current Medications Azithromycin (Zithromax) 500 mg PO DAILY [facility] PRN Reason: Protocol Last Admin: 01/07/18 10:55 Dose: 500 mg Famotidine (Pepcid) 20 mg PO BID [facility] Last Admin: 01/07/18 10:55 Dose: 20 mg Folic Acid (Folic Acid) 1 mg PO DAILY [facility] Last Admin: 01/07/18 10:56 Dose: 1 mg Ceftriaxone Sodium 1 gm/ (Sodium Chloride) 100 mls @ 100 mls/hr IVPB DAILY [facility] PRN Reason: Protocol Last Admin: 01/07/18 10:54 Dose: 100 mls/hr Morphine Sulfate (Morphine) 2 mg IVP Q4 PRN PRN Reason: Pain, severe (8-10) Last Admin: 01/06/18 09:52 Dose: 2 mg Ondansetron HCl (Zofran Inj) 4 mg IVP Q6 PRN PRN Reason: Nausea/Vomiting Oxycodone HCl (Oxycodone Immediate Release Tab) 5 mg PO Q4 PRN PRN Reason: Arm pain Senna/Docusate Sodium (Senokot S 50 Mg-8.6 Mg) 1 tab PO BID [facility] Last Admin: 01/07/18 10:57 Dose: Not Given Thiamine HCl (Vitamin B1 Tab) 100 mg PO DAILY [facility] Last Admin: 01/07/18 10:56 Dose: 100 mg Physical Exam - Head Exam Head Exam: ATRAUMATIC - Eye Exam Eye Exam: Normal appearance - ENT Exam ENT Exam: Mucous Membranes Dry - Respiratory Exam Respiratory Exam: NORMAL BREATHING PATTERN - Cardiovascular Exam Cardiovascular Exam: +S1, +S2 - GI/Abdominal Exam GI & Abdominal Exam: Normal Bowel Sounds - Extremities Exam Extremities exam: Positive for: normal inspection - Neurological Exam Neurological exam: Oriented x3 - Psychiatric Exam Psychiatric exam: Normal Affect, Normal Mood - Skin Skin Exam: Warm Results - Vital Signs Recent Vital Signs: Last Vital Signs Temp 98.3 F 01/07/18 07:10 Pulse 103 H 01/07/18 07:10 Resp 20 01/07/18 07:10 BP 150/85 01/07/18 07:10 Pulse Ox 97 01/07/18 07:10 - Labs Result Diagrams: 01/07/18 07:17 01/07/18 07:17 Labs: Laboratory Results - last 24 hr 01/06/18 01/06/18 01/07/18 10:01 16:17 07:17 WBC 7.3 RBC 2.02 L Hgb 7.5 L Hct 20.7 L MCV 102.3 H MCH 37.3 H MCHC 36.5 RDW 12.2 Plt Count 53 L MPV 9.2 Neut % (Auto) 80.6 H Lymph % (Auto) 11.6 L [place] % (Auto) 7.7 Eos % (Auto) 0.0 Baso % (Auto) 0.1 Neut # (Auto) 5.9 Lymph # (Auto) 0.8 L [place] # (Auto) 0.6 Eos # (Auto) 0.0 Baso # (Auto) 0.0 pO2 55 VBG pH 7.49 H VBG pCO2 33 L VBG HCO3 26.5 VBG Total CO2 26.1 VBG O2 Sat (Calc) 94.4 H VBG Base Excess 2.2 H VBG Potassium 3.4 L Sodium 135.0 Chloride 106.0 Glucose 125 H Lactate 1.1 Potassium Carbon Dioxide Anion Gap BUN Creatinine Est GFR ( Amer) Est GFR (Non-Af Amer) Random Glucose Calcium Total Bilirubin AST ALT Alkaline Phosphatase Total Protein Albumin Globulin Albumin/Globulin Ratio Procalcitonin 1.45 H Venous Blood Potassium 3.4 L 01/07/18 07:17 WBC RBC Hgb Hct MCV MCH MCHC RDW Plt Count MPV Neut % (Auto) Lymph % (Auto) [place] % (Auto) Eos % (Auto) Baso % (Auto) Neut # (Auto) Lymph # (Auto) [place] # (Auto) Eos # (Auto) Baso # (Auto) pO2 VBG pH VBG pCO2 VBG HCO3 VBG Total CO2 VBG O2 Sat (Calc) VBG Base Excess VBG Potassium Sodium 133 Chloride 99 Glucose Lactate Potassium 3.2 L Carbon Dioxide 25 Anion Gap 12 BUN 7 Creatinine 0.5 L Est GFR ( Amer) > 60 Est GFR (Non-Af Amer) > 60 Random Glucose 108 H Calcium 7.4 L Total Bilirubin 2.0 H AST 85 H D ALT 46 Alkaline Phosphatase 82 Total Protein 6.0 L Albumin 3.1 L Globulin 3.0 Albumin/Globulin Ratio 1.0 Procalcitonin Venous Blood Potassium Assessment & Plan (1) Anemia Assessment and Plan: likely hemolysis from stress of acute illness agree with folic acid pt is asymptomatic at this time from her anemia and prefers to hold off on a transfusion will repeat CBC in AM and follow Status: Acute (2) Tobacco abuse Assessment and Plan: smoking cessation discussed at length Thank you for this interesting consult. Status: Acute
[2018-01-07 12:17] LABS: FDP INTERPRETATION POSITIVE (NEGATIVE); FDP QUANTITY >10<40 ug/mL (<10)
[2018-01-07 12:24] LABS: HEPATITIS B SURFACE AG Negative (NEGATIVE)
[2018-01-07 12:29] LABS: HEPATITIS A IGM NEGATIVE (NEGATIVE); HEPATITIS B CORE AB NEGATIVE (NEGATIVE)
[2018-01-07 12:39] LABS: HEPATITIS C ANTIBODY NEGATIVE (NEGATIVE)
[2018-01-07] MEDS: oxyCODONE 5 mg Immediate Release Tab PO PRN ×2 (15:20→21:52)
[2018-01-08 00:16] VITALS: RESP 20
[2018-01-08 06:15] LABS: BASO % 0.2 % (0.0-2.0); EOS % 0.2 % (0.0-4.0); HEMOGLOBIN 7.1 g/dL (11.0-16.0); LYMPH # 1.4 K/uL (1.0-4.3); LYMPH % 19.1 % (20.0-40.0); MEAN CELL VOLUME 102.9 fL (81.0-99.0); MEAN CORPUSCULAR HEMOGLOBIN 37.6 pg (27.0-31.0); MEAN CORPUSCULAR HGB CONC 36.5 g/dL (33.0-37.0); MEAN PLATELET VOLUME 9.3 fL (7.2-11.7); MONO # 0.6 K/uL (0.0-0.8); NEUT # 5.3 K/uL (1.8-7.0); NEUT % 72.5 % (50.0-75.0); RBC 1.89 Mil/uL (3.80-5.20); RED CELL DISTRIBUTION WIDTH 11.9 % (11.5-14.5); WHITE BLOOD COUNT 7.3 K/uL (4.8-10.8)
[2018-01-08 06:39] LABS: ALT/SGPT 34 U/L (9-52); AST/SGOT 41 U/L (14-36); BLOOD UREA NITROGEN 9 mg/dL (7-17); CALCIUM 7.4 mg/dl (8.6-10.4); GFR AFRICAN-AMERICAN > 60; GFR NON-AFRICAN AMERICAN > 60
[2018-01-08 07:38] LABS: FOLATE 11.9 ng/mL
--- NOTE | 2018-01-08 09:26 | US ---
HISTORY: elevated LFT and Bili COMPARISON: None available. TECHNIQUE: Sonographic evaluation of the abdomen. FINDINGS: Examination limited by habitus. LIVER: Measures 17.8 cm in sagittal dimension and appears unremarkable. No focal hepatic mass identified. The main portal vein appears patent with normal directional flow. No intrahepatic bile duct dilatation. GALLBLADDER: 3 mm echogenic immobile focus within the gallbladder favored to reflect a polyp. No gallstones. No gallbladder wall thickening. Negative sonographic Cai's sign as assessed by the hiv nurse. COMMON BILE DUCT: Measures 5 mm. PANCREAS: Not well visualized. RIGHT KIDNEY: Measures 12.4 x 4.5 x 5.0cm. No obstructing calculus or hydronephrosis identified. LEFT KIDNEY: Measures 11.3 x 5.3 x 4.5cm. No obstructing calculi or hydronephrosis identified. SPLEEN: Measures approximately approximately 11.3 cm. AORTA: Limited views appear unremarkable. IVC: Limited views appear unremarkable. OTHER FINDINGS: None. IMPRESSION: Examination limited by habitus. Echogenic liver may be seen in setting of hepatic parenchymal disease or fatty infiltration. 3 mm echogenic immobile focus within the gallbladder favored to reflect a polyp. Preliminary impression was provided by virtual radiologic.
[2018-01-08] MEDS: Docusate-Senna 50 mg-8.6 mg Tab PO SCH ×2 (09:35→18:58)
[2018-01-08] MEDS: oxyCODONE 5 mg Immediate Release Tab PO PRN ×2 (13:04→22:55)
[2018-01-08] MEDS: Potassium Chloride 20 mEq ER Tab PO SCH (18:58)
--- NOTE | 2018-01-08 22:14 | CP.PCM.PN ---
Subjective - Date & Time of Evaluation Date of Evaluation: 01/08/18 Time of Evaluation: 18:20 - Subjective Subjective: No complaints. on folic acid and B12 deferred PRBC transfusion Objective - Vital Signs/Intake and Output Vital Signs (last 24 hours): Temp Pulse Resp BP Pulse Ox 99.0 F 86 20 151/93 H 100 01/08/18 22:00 01/08/18 16:00 01/08/18 16:00 01/08/18 16:00 01/08/18 16:00 - Medications Medications: Current Medications Azithromycin (Zithromax) 500 mg PO DAILY [facility] PRN Reason: Protocol Last Admin: 01/08/18 09:35 Dose: 500 mg Cyanocobalamin (Vitamin B12 1000 Mcg/Ml Inj) 1,000 mcg IM DAILY [facility] Famotidine (Pepcid) 20 mg PO BID [facility] Last Admin: 01/08/18 18:58 Dose: 20 mg Folic Acid (Folic Acid) 1 mg PO DAILY [facility] Last Admin: 01/08/18 09:35 Dose: 1 mg Ceftriaxone Sodium 1 gm/ (Sodium Chloride) 100 mls @ 100 mls/hr IVPB DAILY [facility] PRN Reason: Protocol Last Admin: 01/08/18 09:36 Dose: 100 mls/hr Morphine Sulfate (Morphine) 2 mg IVP Q4 PRN PRN Reason: Pain, severe (8-10) Last Admin: 01/06/18 09:52 Dose: 2 mg Ondansetron HCl (Zofran Inj) 4 mg IVP Q6 PRN PRN Reason: Nausea/Vomiting Oxycodone HCl (Oxycodone Immediate Release Tab) 5 mg PO Q4 PRN PRN Reason: Arm pain Last Admin: 01/08/18 13:04 Dose: 5 mg Potassium Chloride (K-Dur 20 Meq Er Tab) 20 meq PO BID [facility] Stop: 01/11/18 10:01 Last Admin: 01/08/18 18:58 Dose: 20 meq Senna/Docusate Sodium (Senokot S 50 Mg-8.6 Mg) 1 tab PO BID [facility] Last Admin: 01/08/18 18:58 Dose: 1 tab Thiamine HCl (Vitamin B1 Tab) 100 mg PO DAILY [facility] Last Admin: 01/08/18 09:36 Dose: 100 mg - Labs Labs: 01/08/18 06:04 01/08/18 06:04 PT 12.3 SECONDS (9.7-12.2) H 01/05/18 08:40 INR 1.1 01/05/18 08:40 APTT 25 SECONDS (21-34) 01/05/18 08:40 - Head Exam Head Exam: ATRAUMATIC - Eye Exam Eye Exam: Normal appearance - ENT Exam ENT Exam: Mucous Membranes Dry - Respiratory Exam Respiratory Exam: NORMAL BREATHING PATTERN - Cardiovascular Exam Cardiovascular Exam: +S1, +S2 - GI/Abdominal Exam GI & Abdominal Exam: Normal Bowel Sounds Assessment and Plan (1) Anemia Assessment & Plan: mild hemolysis, surgical blood loss, borderline b12 on folate and B12 supplementation deferred PRBC transfusion will rediscuss if H/H cont. to decline or symptomatic Status: Acute (2) Tobacco abuse Status: Acute
[2018-01-09 08:12] LABS: BASO % 0.3 % (0.0-2.0); EOS % 0.6 % (0.0-4.0); HEMOGLOBIN 7.2 g/dL (11.0-16.0); LYMPH # 1.2 K/uL (1.0-4.3); LYMPH % 19.8 % (20.0-40.0); MEAN CELL VOLUME 102.8 fL (81.0-99.0); MEAN PLATELET VOLUME 8.4 fL (7.2-11.7); MONO % 16.2 % (0.0-10.0); NEUT # 3.9 K/uL (1.8-7.0); NEUT % 63.1 % (50.0-75.0); RBC 1.94 Mil/uL (3.80-5.20); RED CELL DISTRIBUTION WIDTH 11.8 % (11.5-14.5); WHITE BLOOD COUNT 6.1 K/uL (4.8-10.8)
[2018-01-09 08:42] LABS: ALB/GLOB RATIO 0.9 (1.0-2.1); ALT/SGPT 23 U/L (9-52); AST/SGOT 35 U/L (14-36); BLOOD UREA NITROGEN 8 mg/dL (7-17); CALCIUM 7.6 mg/dl (8.6-10.4); GFR AFRICAN-AMERICAN > 60; GFR NON-AFRICAN AMERICAN > 60
[2018-01-09] MEDS: Potassium Chloride 20 mEq ER Tab PO SCH ×2 (09:11→17:37)
[2018-01-09] MEDS: oxyCODONE 5 mg Immediate Release Tab PO PRN ×2 (09:11→18:36)
[2018-01-09] MEDS: Docusate-Senna 50 mg-8.6 mg Tab PO SCH ×2 (09:11→17:37)
--- NOTE | 2018-01-09 21:31 | CP.PCM.PN ---
Subjective - Date & Time of Evaluation Date of Evaluation: 01/09/18 Time of Evaluation: 18:40 - Subjective Subjective: No complaints. Objective - Vital Signs/Intake and Output Vital Signs (last 24 hours): Temp Pulse Resp BP Pulse Ox 99.9 F H 93 H 20 164/89 H 96 01/09/18 15:20 01/09/18 15:20 01/09/18 15:20 01/09/18 15:20 01/09/18 15:20 Intake and Output: 01/09/18 01/10/18 18:59 06:59 Intake Total 700 Balance 700 - Medications Medications: Current Medications Azithromycin (Zithromax) 500 mg PO DAILY [facility] PRN Reason: Protocol Last Admin: 01/09/18 09:11 Dose: 500 mg Cyanocobalamin (Vitamin B12 1000 Mcg/Ml Inj) 1,000 mcg IM DAILY [facility] Last Admin: 01/09/18 09:25 Dose: 1,000 mcg Famotidine (Pepcid) 20 mg PO BID [facility] Last Admin: 01/09/18 17:37 Dose: 20 mg Folic Acid (Folic Acid) 1 mg PO DAILY [facility] Last Admin: 01/09/18 09:11 Dose: 1 mg Ceftriaxone Sodium 1 gm/ (Sodium Chloride) 100 mls @ 100 mls/hr IVPB DAILY [facility] PRN Reason: Protocol Last Admin: 01/09/18 09:25 Dose: 100 mls/hr Morphine Sulfate (Morphine) 2 mg IVP Q4 PRN PRN Reason: Pain, severe (8-10) Last Admin: 01/06/18 09:52 Dose: 2 mg Ondansetron HCl (Zofran Inj) 4 mg IVP Q6 PRN PRN Reason: Nausea/Vomiting Oxycodone HCl (Oxycodone Immediate Release Tab) 5 mg PO Q4 PRN PRN Reason: Arm pain Last Admin: 01/09/18 18:36 Dose: 5 mg Potassium Chloride (K-Dur 20 Meq Er Tab) 20 meq PO BID [facility] Stop: 01/11/18 10:01 Last Admin: 01/09/18 17:37 Dose: 20 meq Senna/Docusate Sodium (Senokot S 50 Mg-8.6 Mg) 1 tab PO BID [facility] Last Admin: 01/09/18 17:37 Dose: 1 tab Thiamine HCl (Vitamin B1 Tab) 100 mg PO DAILY [facility] Last Admin: 03/11/18 09:11 Dose: 100 mg - Labs Labs: 01/09/18 08:02 01/09/18 08:02 PT 12.3 SECONDS (9.7-12.2) H 01/05/18 08:40 INR 1.1 01/05/18 08:40 APTT 25 SECONDS (21-34) 01/05/18 08:40 - Head Exam Head Exam: ATRAUMATIC - Eye Exam Eye Exam: Normal appearance - ENT Exam ENT Exam: Mucous Membranes Dry - Respiratory Exam Respiratory Exam: NORMAL BREATHING PATTERN - Cardiovascular Exam Cardiovascular Exam: +S1, +S2 - GI/Abdominal Exam GI & Abdominal Exam: Normal Bowel Sounds Assessment and Plan (1) Anemia Assessment & Plan: H/H stabilizing folic acid and b12 supplementation hemolysis appears to be resolving repeat cbc in AM Status: Acute (2) Thrombocytopenia Assessment & Plan: likely consumptive from recent surgery improving Status: Acute (3) Tobacco abuse Assessment & Plan: smoking cessation Status: Acute
[2018-01-10 00:13] VITALS: O2SAT 98
[2018-01-10] MEDS: oxyCODONE 5 mg Immediate Release Tab PO PRN (01:11)
[2018-01-10 07:33] LABS: BASO % 0.3 % (0.0-2.0); EOS # 0.1 K/uL (0.0-0.7); EOS % 0.8 % (0.0-4.0); HEMOGLOBIN 7.6 g/dL (11.0-16.0); LYMPH # 0.9 K/uL (1.0-4.3); LYMPH % 13.7 % (20.0-40.0); MEAN CELL VOLUME 102.8 fL (81.0-99.0); MEAN PLATELET VOLUME 8.4 fL (7.2-11.7); MONO # 1.3 K/uL (0.0-0.8); MONO % 19.8 % (0.0-10.0); NEUT # 4.3 K/uL (1.8-7.0); NEUT % 65.4 % (50.0-75.0); RBC 2.06 Mil/uL (3.80-5.20); RED CELL DISTRIBUTION WIDTH 12.5 % (11.5-14.5); WHITE BLOOD COUNT 6.6 K/uL (4.8-10.8)
[2018-01-10 07:46] LABS: ALB/GLOB RATIO 0.9 (1.0-2.1); ALBUMIN 3.2 g/dL (3.5-5.0); ALT/SGPT 26 U/L (9-52); AST/SGOT 33 U/L (14-36); BLOOD UREA NITROGEN 8 mg/dL (7-17); CALCIUM 8.1 mg/dl (8.6-10.4); GFR AFRICAN-AMERICAN > 60; GFR NON-AFRICAN AMERICAN > 60
[2018-01-10 08:03] VITALS: BP 144/91; PULSE 83; TEMP 99.3
--- NOTE | 2018-01-10 08:12 | PN ---
DATE: SUBJECTIVE: The patient is status post open reduction and internal fixation. [id number] any significant pain in the right shoulder. Denies any paresthesias or motor weakness. PHYSICAL EXAMINATION: GENERAL: The patient is alert, awake, not in any acute distress. VITAL SIGNS: Stable, afebrile. SKIN: Dressing is clean, dry, and intact. EXTREMITIES: Median, ulnar, and radial nerve intact distally. ASSESSMENT AND PLAN: A 57-year-old female postop day 4 status post open reduction and internal fixation of right proximal femur fracture and treatment. The patient instructed to remain nonweightbearing. Only gentle pendulum exercise of the right shoulder. The patient is orthopedically stable for discharge and follow up in my office upon discharge. Chris Norris MD [email or web address]
[2018-01-10] MEDS: Potassium Chloride 20 mEq ER Tab PO SCH (09:59)
[2018-01-10] MEDS: Docusate-Senna 50 mg-8.6 mg Tab PO SCH (10:01)
--- NOTE | 2018-01-10 11:13 | PN ---
DATE: The patient's hemoglobin is 7.1, stable all the way, hemoglobin, correct potassium. Juan Carlos Daniels MD
--- NOTE | 2018-01-10 11:17 | CP.PCM.PN ---
Subjective - Date & Time of Evaluation Date of Evaluation: 01/10/18 Time of Evaluation: 09:00 - Subjective Subjective: PGY-[address] Daniels Patient was seen and examined at bedside. Patient had a fever of 100.7 overnight and ibuprofen was given. Patient complains of pain at the surgical site, otherwise she has no other complaints. Paitent denies headache, SOB, chest pain, abdominal pain, nausea, vomiting, or diarrhea. Objective - Vital Signs/Intake and Output Vital Signs (last 24 hours): Temp Pulse Resp BP Pulse Ox 99.3 F 83 20 144/91 H 98 01/10/18 07:00 01/10/18 07:00 01/10/18 07:00 01/10/18 07:00 01/10/18 07:00 - Medications Medications: Current Medications Azithromycin (Zithromax) 500 mg PO DAILY [facility] PRN Reason: Protocol Last Admin: 01/10/18 09:58 Dose: 500 mg Cyanocobalamin (Vitamin B12 1000 Mcg/Ml Inj) 1,000 mcg IM DAILY [facility] Last Admin: 01/10/18 09:59 Dose: 1,000 mcg Famotidine (Pepcid) 20 mg PO BID [facility] Last Admin: 01/10/18 09:59 Dose: 20 mg Folic Acid (Folic Acid) 1 mg PO DAILY [facility] Last Admin: 01/10/18 09:59 Dose: 1 mg Ceftriaxone Sodium 1 gm/ (Sodium Chloride) 100 mls @ 100 mls/hr IVPB DAILY [facility] PRN Reason: Protocol Last Admin: 01/10/18 09:56 Dose: 100 mls/hr Ibuprofen (Motrin Tab) 400 mg PO Q8H PRN PRN Reason: Fever >100.4 F Last Admin: 01/09/18 22:04 Dose: 400 mg Ondansetron HCl (Zofran Inj) 4 mg IVP Q6 PRN PRN Reason: Nausea/Vomiting Potassium Chloride (K-Dur 20 Meq Er Tab) 20 meq PO BID [facility] Stop: 01/11/18 10:01 Last Admin: 01/10/18 09:59 Dose: 20 meq Senna/Docusate Sodium (Senokot S 50 Mg-8.6 Mg) 1 tab PO BID [facility] Last Admin: 01/10/18 10:01 Dose: Not Given Thiamine HCl (Vitamin B1 Tab) 100 mg PO DAILY [facility] Last Admin: 03/12/18 09:59 Dose: 100 mg - Labs Labs: 01/10/18 07:24 01/10/18 07:24 PT 12.3 SECONDS (9.7-12.2) H 01/05/18 08:40 INR 1.1 01/05/18 08:40 APTT 25 SECONDS (21-34) 01/05/18 08:40 - Constitutional Appears: Well, No Acute Distress - Head Exam Head Exam: ATRAUMATIC - Eye Exam Eye Exam: EOMI, Normal appearance - ENT Exam ENT Exam: Mucous Membranes Moist - Neck Exam Neck Exam: Full ROM. absent: Lymphadenopathy - Respiratory Exam Respiratory Exam: Clear to Ausculation Bilateral, NORMAL BREATHING PATTERN. absent: Respiratory Distress - Cardiovascular Exam Cardiovascular Exam: REGULAR RHYTHM, +S1, +S2. absent: Murmur - GI/Abdominal Exam GI & Abdominal Exam: Soft, Normal Bowel Sounds. absent: Tenderness - Extremities Exam Extremities Exam: Full ROM. absent: Calf Tenderness - Neurological Exam Neurological Exam: Alert, Awake, Oriented x3 - Psychiatric Exam Psychiatric exam: Normal Affect, Normal Mood - Skin Skin Exam: Dry, Warm Assessment and Plan - Assessment and Plan (Free Text) Assessment: Distal Humerus fracture w/ fx of greater tuberosity -S/P Right should ORIF POD #5 -Follow orthopedics recommendations: patient is to f/u with Dr. Norris as outpatient patient is s/p ORIF; patient is receiving lovenox here for anticoagulation; further anticoagulation as per Ortho as outpatient -Neurovascularly intact -pain control; morphine IV, Oxycodone -as per ortho guidelines patient does not need anticoagulation because her surgery was on upper extremity and she has no limitations in mobility Macrocytic Anemia -Improving, H/H stabilized -Heme/onc consulted, help appreciated -Folic acid and B12 supplement Thrombocytopenia -Improving, 145 today -Likely consumptive from recent surgery Fever -100.7F overnight, single dose ibuprofen given -blood cultures to follow Pmhx of HTN -lisinopril 5mg HOLD 2/2 to G6PD deficiency Hx of G6PD Deficiency -Avoid hepatotoxic medications; list is long for medications that are warned -will stop ibuprofen/any NSAID, will stop lisinopril, stopped lovenox 2/2 to thrombocytopenia Possible Hemolytic Anemia 2/2 to drug reaction -consult hematology; Dr. Anderson; thank you for your help; appreciate recs -stopped all possible medications that are on up-to-date for possible reactions with G6PD def -f/u haptoglobin, fibrin degredation products and peripheral smear, type and cross; patient has drop in hemoglobin from 12 to 7 and all blood lines -patient subjectively feels fine, no complaints Prophylactic measures -Pepcid -SCD Case discussed with Dr. Daniels. Patient is medically stable to be discharged per Dr. Daniels.
--- NOTE | 2018-01-13 09:03 | DS ---
The patient is admitted to the hospital with complain of fracture of humerus, fracture of shoulder. Patient has history of G6PD deficiency anemia. The patient underwent surgery. Post surgery, uneventful anemia, attributed to hemolysis. The patient had moderate hemoglobin until he stabilized. The patient to be followed as an outpatient. DIAGNOSES: Fracture of shoulder, anemia. Juan Carlos Daniels MD
== END 2018-01-10 12:25 | disposition home or self-care (01) | DRG 493 ==
LOC: C.ER 07:47 → C.9E 09:44 → C.6T 11:43
PROVIDERS: ADMIT Internal Medicine Pulmonary Disease; ATTEND Internal Medicine Pulmonary Disease
PROC: 0PUC0KZ Supplement Right Humeral Head with Nonautologous Tissue Substitute, Open Approach (ICD-10-PCS; 2018-01-05)
PROC: 0LS30ZZ Reposition Right Upper Arm Tendon, Open Approach (ICD-10-PCS; 2018-01-05)
PROC: 0PSC04Z Reposition Right Humeral Head with Internal Fixation Device, Open Approach (ICD-10-PCS; principal; 2018-01-05 17:00)
DX: S42.291A Other displaced fracture of upper end of right humerus, initial encounter for closed fracture (principal); M75.31 Calcific tendinitis of right shoulder; E74.01 von Gierke disease; D69.6 Thrombocytopenia, unspecified; D58.9 Hereditary hemolytic anemia, unspecified; J98.11 Atelectasis; R50.82 Postprocedural fever; D53.9 Nutritional anemia, unspecified; E11.9 Type 2 diabetes mellitus without complications; F17.200 Nicotine dependence, unspecified, uncomplicated; I10 Essential (primary) hypertension; S43.014A Anterior dislocation of right humerus, initial encounter; W01.0XXA Fall on same level from slipping, tripping and stumbling without subsequent striking against object, initial encounter; Z90.710 Acquired absence of both cervix and uterus; Z85.3 Personal history of malignant neoplasm of breast

== ENCOUNTER 2018-05-31 15:56 | Emergency (ER) | payer BC, OTHER ==
[2018-05-31 15:57] VITALS: BMI 25.8
[2018-05-31 16:10] VITALS: RESP 18
--- NOTE | 2018-05-31 17:34 | C.PDOC ---
History Of Present Illness 57yo female, history of alcohol abuse, brought to ER by family for evaluation after she was found in the hallway of her home with alcohol on breath. The family is unsure if the patient fell. Patient has a history of right shoulder fracture and now is complaining of pain to the area. Otherwise, she denies any other medical complaints. Time Seen by Provider: 05/31/18 15:58 Chief Complaint (Nursing): Substance Abuse History Per: Family History/Exam Limitations: intoxication Onset/Duration Of Symptoms: Unknown Modifying Factor(s): Alcohol Past Medical History Reviewed: Historical Data, Nursing Documentation, Vital Signs Vital Signs: Last Vital Signs Temp 98.3 F 05/31/18 18:37 Pulse 74 05/31/18 18:37 Resp 18 05/31/18 18:37 BP 109/68 05/31/18 18:37 Pulse Ox 97 05/31/18 18:40 - Medical History PMH: Anemia, HTN Surgical History: No Surg Hx - [facility] Procedures EXCISION OF RIGHT UPPER ARM MUSCLE, OPEN APPROACH (04/05/18) REMOVAL OF OTHER DEVICE FROM R UP EXTREM, OPEN APPROACH (04/05/18) REPOSITION RIGHT HUMERAL HEAD WITH INT FIX, OPEN APPROACH (01/05/18) REPOSITION RIGHT HUMERAL SHAFT WITH INT FIX, OPEN APPROACH (04/05/18) REPOSITION RIGHT UPPER ARM TENDON, OPEN APPROACH (01/05/18) SUPPLEMENT RIGHT HUMERAL HEAD WITH NONAUT SUB, OPEN APPROACH (01/05/18) Family History: States: No Known Family Hx - Social History Hx Tobacco Use: Yes Hx Alcohol Use: Yes Hx Substance Use: No - Immunization History Hx Tetanus Toxoid Vaccination: No Hx Influenza Vaccination: No Hx Pneumococcal Vaccination: No Review Of Systems Except As Marked, All Systems Reviewed And Found Negative. Constitutional: Negative for: Fever, Chills Cardiovascular: Negative for: Chest Pain Respiratory: Negative for: Shortness of Breath Gastrointestinal: Negative for: Vomiting, Abdominal Pain Musculoskeletal: Positive for: Shoulder Pain (right) Physical Exam - Physical Exam Appears: No Acute Distress Skin: Normal Color, Warm, Dry Head: Normacephalic Eye(s): bilateral: Normal Inspection Oral Mucosa: Other (alcohol on breath) Neck: Supple Chest: Symmetrical Cardiovascular: Rhythm Regular Respiratory: Normal Breath Sounds Extremity: Normal ROM (FROM right shoulder, and right upper arm), Other (+ healed surgical scar to right anterior shoulder. ) Neurological/Psych: Oriented x3 Gait: Unsteady ED Course And Treatment O2 Sat by Pulse Oximetry: 97 (RA) Pulse Ox Interpretation: Normal Medical Decision Making Medical Decision Making: Assessment: Alcohol intoxication Plan: -- XR Right shoulder -- XR Right Humerus -- CT Head w/o contrast 1728 CT Head FINDINGS: HEMORRHAGE: No intracranial hemorrhage. BRAIN: No mass effect or edema. No atrophy or chronic microvascular ischemic changes. VENTRICLES: Unremarkable. No hydrocephalus. CALVARIUM: Unremarkable. PARANASAL SINUSES: Unremarkable as visualized. No significant inflammatory changes. MASTOID AIR CELLS: Unremarkable as visualized. No inflammatory changes. OTHER FINDINGS: None. IMPRESSION: No evidence of acute intracranial hemorrhage intracranial collection mass effect or midline shift. 1810 XR Shoulder reviewed and shows surgical hardware intact. No gross fracture noted. XR humerus reviewed and shows humeral head is subluxed, consistent with previous XR. patient is able to move injured arm and touch other shoulder. patient has an appointment with orthopaedic doctor the following day. Patient's family report they are willing to take her home. Patient to be discharged into family's care. Disposition Counseled Patient/Family Regarding: Studies Performed, Diagnosis, Need For Followup - Disposition Referrals: [facility] [Outside] Disposition: HOME/ ROUTINE Disposition Time: 18:11 Condition: STABLE Additional Instructions: follow up with medical clinic within 2 days call to make an appointment you are discharged to your family who agrees to monitor you and watch after you until you are sober return to ER at any time. Instructions: Alcohol Abuse and Alcoholism (DC) Forms: [facility] (Liberian), General Discharge Instructions - Clinical Impression Clinical Impression: Alcohol abuse - Scribe Statement The provider has reviewed the documentation as recorded by the Scribe (Karina Gaines) Provider Attestation: All medical record entries made by the Scribe were at my direction and personally dictated by me. I have reviewed the chart and agree that the record accurately reflects my personal performance of the history, physical exam, medical decision making, and the department course for this patient. I have also personally directed, reviewed, and agree with the discharge instructions and disposition.
--- NOTE | 2018-05-31 17:35 | CT ---
Date of service: 05/31/2018 PROCEDURE: CT HEAD WITHOUT CONTRAST. HISTORY: fall COMPARISON: None available. TECHNIQUE: Axial computed tomography images were obtained through the head/brain without intravenous contrast. Radiation dose: Total exam DLP = 780.78 mGy-cm. This CT exam was performed using one or more of the following dose reduction techniques: Automated exposure control, adjustment of the mA and/or kV according to patient size, and/or use of iterative reconstruction technique. FINDINGS: HEMORRHAGE: No intracranial hemorrhage. BRAIN: No mass effect or edema. No atrophy or chronic microvascular ischemic changes. VENTRICLES: Unremarkable. No hydrocephalus. CALVARIUM: Unremarkable. PARANASAL SINUSES: Unremarkable as visualized. No significant inflammatory changes. MASTOID AIR CELLS: Unremarkable as visualized. No inflammatory changes. OTHER FINDINGS: None. IMPRESSION: No evidence of acute intracranial hemorrhage intracranial collection mass effect or midline shift.
--- NOTE | 2018-05-31 18:20 | RAD ---
Date of service: 05/31/2018 PROCEDURE: Radiographs of the Right Shoulder HISTORY: fall COMPARISON: Comparison is made to 01/05/2018 FINDINGS: BONES: Status post prior internal fixation at the right humeral head and shift. JOINTS: Abnormal position of the right humeral head relative to the glenoid fossa and the possibility of acute dislocation cannot be excluded. Focal irregularity and cortex erosion noted at the medial aspect of the right humeral head. SOFT TISSUES: Soft tissue swelling seen. OTHER FINDINGS: None. IMPRESSION: Abnormal position of the right humeral head relative to the glenoid fossa and the possibility of dislocation cannot be excluded. If clinically warranted further assessment by CT may be obtained.
[2018-05-31 18:39] VITALS: BP 109/68; PULSE 74; TEMP 98.3
[2018-05-31 18:40] VITALS: O2SAT 97
--- NOTE | 2018-06-01 09:48 | RAD ---
PROCEDURE: Radiographs of the right humerus. HISTORY: fall COMPARISON: None. FINDINGS: BONES: No acute fracture or dislocation identified. A lengthy dorsal compression plate is identified from the right humeral head to the distal diaphysis transfixed by multiple compression screws with 2 independent mid diaphyseal compression screws. Prominent periosteal reaction at mid diaphyseal humeral fracture site indicating fracture at intermediate stage of healing. SOFT TISSUES: Normal. OTHER FINDINGS: None. IMPRESSION: Mid right diaphyseal fracture added intermediate stage of healing status post ORIF as discussed above. No definitive acute fracture or dislocation appreciable. Clinical and radiographic follow-up recommended.
== END 2018-05-31 18:39 | disposition home or self-care (01) ==
LOC: C.ER 15:56
DX: F10.10 Alcohol abuse, uncomplicated (principal); Y90.9 Presence of alcohol in blood, level not specified